=== PATIENT | female | born 1935 | race Caucasian/White ===

== ENCOUNTER 2025-05-26 09:34 | Emergency (ER) | payer BC, SELFPAY ==
[2025-05-26 09:41] VITALS: BP 122/63
[2025-05-26] MEDS: NORCO 5/325 0.5 TABLET PO (12:07)
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
== END 2025-05-26 13:32 | disposition home or self-care (01) ==
LOC: EMR 09:34
PROVIDERS: EMERGENCY PHYSICIAN Emergency Medicine; FAMILY PHYSICIAN Nurse Practitioner Adult Health
DX: S82.832A Other fracture of upper and lower end of left fibula, initial encounter for closed fracture (principal); V00.848A Other accident with standing micro-mobility pedestrian conveyance, initial encounter; E03.9 Hypothyroidism, unspecified; I48.91 Unspecified atrial fibrillation; Z95.2 Presence of prosthetic heart valve; Z79.01 Long term (current) use of anticoagulants
CPT/HCPCS: 99283; 73610; 73630

== ENCOUNTER 2025-05-31 09:43 | Emergency (ER) | payer BC, SELFPAY ==
[2025-05-31 09:49] VITALS: BP 130/69
[2025-05-31 11:49] VITALS: BP 115/62; BMI 22.6
[2025-05-31 11:53] LABS: Hematocrit 30.1 % (37.0-47.0); Hemoglobin 10.3 g/dL (12.0-16.0); Mean Corp Hgb Conc. 34.2 g/dL (33.0-37.0); Mean Corpuscular Volume 100.3 fL (81.0-99.0); Nucleated Red Blood Cells % 0 %; Platelet Count 185 10^3/uL (130-400); Red Cell Dist. Width 13.0 % (11.5-14.5)
[2025-05-31 12:05] LABS: APTT 41.1 Sec (23.4-35.0); INR 3.82; PT 37.9 Sec (11.4-14.6)
[2025-05-31 12:24] LABS: ALT (SGPT) 20 U/L (0-35); AST (SGOT) 49 U/L (14-36); Albumin 4.1 g/dl (3.5-5.0); Alkaline Phosphatase 72 U/L (38-126); Blood Urea Nitrogen 23 mg/dl (7-17); Calcium 9.0 mg/dl (8.4-10.2); Carbon Dioxide 26 mmol/L (22-30); Chloride 98 mmol/L (98-107); Estimated Creatinine Clearance 33 ml/min; Glucose 107 mg/dl (70-99); Potassium 4.4 mmol/L (3.5-5.1); Sodium 131 mmol/L (135-145); Total Protein 7.8 g/dl (6.3-8.2); eGFR 48.33
[2025-05-31 12:40] LABS: C-Reactive Protein 18.40 mg/L (0.0-10.00)
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
[2025-05-31] MEDS: MORPHINE SULFATE 2 MG IV (13:30)
[2025-05-31 13:33] VITALS: BP 105/72
[2025-05-31 14:00] VITALS: BP 107/64
[2025-05-31 14:58] VITALS: BP 115/86
[2025-05-31 15:00] VITALS: BP 114/70
== END 2025-05-31 16:53 | disposition home or self-care (01) ==
LOC: EMR 09:43
PROVIDERS: Physician Assistant; EMERGENCY PHYSICIAN Emergency Medicine; FAMILY PHYSICIAN Nurse Practitioner Adult Health
DX: S82.832A Other fracture of upper and lower end of left fibula, initial encounter for closed fracture (principal); S90.32XA Contusion of left foot, initial encounter; M79.89 Other specified soft tissue disorders; S80.812A Abrasion, left lower leg, initial encounter; X58.XXXA Exposure to other specified factors, initial encounter; I48.91 Unspecified atrial fibrillation; I35.0 Nonrheumatic aortic (valve) stenosis; E03.9 Hypothyroidism, unspecified; I48.92 Unspecified atrial flutter; I49.5 Sick sinus syndrome; Z79.01 Long term (current) use of anticoagulants; Z95.2 Presence of prosthetic heart valve; Z85.3 Personal history of malignant neoplasm of breast; Z86.61 Personal history of infections of the central nervous system; Z90.2 Acquired absence of lung [part of]; Z88.8 Allergy status to other drugs, medicaments and biological substances
CPT/HCPCS: 99285; 96374; 73701; 80053; 83605; 85025; 85610; 85652; 85730; 86140; 87040; 93971; Q9967